=== PATIENT | female | born 1970 | race Caucasian/White ===

== ENCOUNTER → 2019-12-13 | Outpatient (CLI) | payer BC ==
[~2019-12-13] MED LIST: CETI10TA24 PO; PREG50CA91 PO; TRAM-48 PO
== END | disposition home or self-care (01) ==
LOC: LAB 13:43
PROVIDERS: ATTEND Neurological Surgery
DX: Z01.818 Encounter for other preprocedural examination (principal); Z11.59 Encounter for screening for other viral diseases
CPT/HCPCS: C9803; U0003; 36415

== ENCOUNTER 2019-12-17 09:13 | Day surgery (SDC) | payer BC ==
[~2019-12-17] VITALS: Ht 160 cm; Wt 60.0 kg
[~2019-12-17 09:13] MED LIST changes: +BACITRACIN 50,000 UNIT in IV NORMAL SALINE 500ML BAG 500 ML IRR ONE; -CETI10TA24 PO; -PREG50CA91 PO; -TRAM-48 PO
[2019-12-17] MEDS ORDERED: LIDOCAINE 1% Multi-Dose 20 ML VIAL. ONE (09:56)
[2019-12-17] MEDS ORDERED: LIDOCAINE 1% PF 30 ML VIAL. ONE (09:59)
[2019-12-17] MEDS ORDERED: CETI10TA24 PO (10:01)
[2019-12-17] MEDS ORDERED: PREG50CA91 PO (10:01)
[2019-12-17] MEDS ORDERED: 0.9 % SODIUM CHLORIDE 20 ML VIAL. IJ ONE ×2 (10:05)
[2019-12-17] MEDS ORDERED: PROPOFOL 10 MG/ML (20ML) VIAL. IV ONE ×2 (10:07→11:58)
[2019-12-17] MEDS ORDERED: MIDAZOLAM HCL/PF 2 MG/2 ML VIAL. ONE (10:07)
[2019-12-17] MEDS ORDERED: LIDOCAINE 2% PF 5 ML VIAL. ONE (10:07)
[2019-12-17 10:30] LABS: BASO % 1 % (0-3); EOS # 0.1 x10^3/uL (0.0-0.7); EOS % 2 % (0-3); HEMATOCRIT 41.1 % (36.0-47.0); LYMPH # 1.3 x10^3/uL (1.0-4.8); LYMPH % 20 % (24-48); MEAN CORPUSCULAR HEMOGLOBIN 29 pg (25-35); MEAN CORPUSCULAR HGB CONC 34 g/dL (31-37); MEAN CORPUSCULAR VOLUME 85 fL (79-100); MONO # 0.4 x10^3/uL (0.0-1.1); MONO % 6 % (0-9); NEUT # 4.6 x10^3/uL (1.8-7.7); NEUT % 72 % (31-73); PLATELET COUNT 258 x10^3/uL (140-400); RED BLOOD COUNT 4.86 x10^6/uL (3.50-5.40); RED CELL DISTRIBUTION WIDTH 13.2 % (11.5-14.5); WHITE BLOOD COUNT 6.4 x10^3/uL (4.0-11.0)
[2019-12-17] MEDS ORDERED: IV RINGERS,LACTATED 1000ML 1,000 ML IV SCH (10:30)
[2019-12-17 10:31] LABS: CALCIUM 8.4 mg/dL (8.5-10.1); CREATININE 0.8 mg/dL (0.6-1.0); GFR 76.6; POTASSIUM 3.7 mmol/L (3.5-5.1)
[2019-12-17 10:37] LABS: ALBUMIN 3.6 g/dL (3.4-5.0); TOTAL BILIRUBIN 0.4 mg/dL (0.2-1.0); TOTAL PROTEIN 7.3 g/dL (6.4-8.2)
[2019-12-17] MEDS: VANCOMYCIN 1GM IVPB FOR OMNI 250 ML IV PRN ×2 (10:45→11:04)
[2019-12-17] MEDS ORDERED: KETOROLAC 30 MG/ML VIAL. ONE (11:44)
--- NOTE | 2019-12-17 12:53 | PDOC ---
BRIEF OPERATIVE NOTE Date: Dec 17, 2019 Pre-Op Diagnosis left carpal tunnel syndrome Post-Op Diagnosis same Procedure Performed left carpal tunnel release Surgeon Estela Upsetter Helper none Anesthesiologist Leida Anesthesia Type: MAC, Local Blood Loss 5mL Findings hypertrophied carpal ligament Complications none apparent TARI MATIAS MD Dec 17, 2019 12:53
[2019-12-17] MEDS ORDERED: TRAM-48 PO (13:13)
[2019-12-17 13:30] VITALS: BP 135/77
[2019-12-17] MEDS ORDERED: PREGABALIN 50 MG CAPSULE PO SCH (21:00)
[2019-12-18 01:08] LABS: HEMOGLOBIN A1C 7.6 % (4.8-5.6)
[2019-12-18] MEDS ORDERED: CETIRIZINE HCL 10 MG TABLET. PO SCH (09:00)
--- NOTE | 2019-12-24 14:02 | OP ---
DATE OF SURGERY: 12/17/2019 SURGEON: Gerry Matias MD PATTERN ASSEMBLER: None. PREOPERATIVE DIAGNOSIS: Left carpal tunnel syndrome. POSTOPERATIVE DIAGNOSIS: Left carpal tunnel syndrome. PROCEDURE: Median nerve release at the left carpal tunnel/left carpal tunnel release. ANESTHESIA: Monitored anesthesia care. COMPLICATIONS: None. INDICATIONS FOR THE PROCEDURE: The patient is a 49-year-old female who presents with numbness and paresthesia and EMG consistent with left carpal tunnel syndrome. She has been refractory to nonsurgical treatments. Please refer to the patient's chart for additional details. DESCRIPTION OF PROCEDURE: After informed consent was obtained, the patient was brought to the operating room due to allergies. Vancomycin was instituted as a prophylactic antibiotic. Monitored anesthesia care was instituted and tourniquet was applied. The left arm was prepped and draped in the usual sterile fashion. The left carpal tunnel was approximated in the midline from the distal palmar crease extending distally approximately 2 cm. Incision was made with a 15 blade scalpel. Gentle sharp dissection was utilized to dissect through the subcutaneous fat and a self-retainer was instituted. The transverse carpal ligament was readily identified and sharply divided, centered initially with a scalpel. Division was extended proximally and distally on the direct visualization with tenotomy scissors to complete the release of the carpal tunnel. The entirety of the median nerve was readily identified, preserved throughout the procedure. Once the division was complete, the tourniquet was taken down. Total tourniquet time was 31 minutes. Pristine hemostasis was achieved with tamponade as well as some use of bipolar electrocautery. Wound was generously irrigated with antibiotic irrigation prior to closure. Subcutaneous tissues were reapproximated with 0 Vicryl in interrupted inverted fashion. Skin was reapproximated with 3-0 nylon interrupted vertical mattress fashion. The wound was dressed with Xeroform, Telfa, 4 x 4s, soft roll and Nico bandage. At the end of the procedure, all counts were correct. The patient was awakened and taken to recovery in stable condition. There were no intraprocedural complications apparent. GERRY MATIAS MD DR: FRANDY/rm JOB#: [id number] / [id number]
== END 2019-12-17 13:50 | disposition home or self-care (01) ==
LOC: SURG 09:13
PROVIDERS: ATTEND Neurological Surgery
DX: G56.02 Carpal tunnel syndrome, left upper limb (principal); M79.7 Fibromyalgia; E11.9 Type 2 diabetes mellitus without complications; Z79.84 Long term (current) use of oral hypoglycemic drugs; Z87.442 Personal history of urinary calculi; Z79.899 Other long term (current) drug therapy; Z79.01 Long term (current) use of anticoagulants
CPT/HCPCS: 36415; 64721; 80053; 81025; 82962; 83036; 85025; 85610; 85730; J1885; J2250; J2704; J3370; J3490; J7040